=== PATIENT | female | born 1955 | race Caucasian/White ===

== ENCOUNTER → 2018-05-12 11:13 | Outpatient (CLI) | payer OTHER, SELFPAY ==
[2018-05-12 11:55] LABS: INR 1.6 (0.9-1.3); Prothrombin Time 17.3 SECONDS (10.1-12.7)
== END ==
PROVIDERS: Family Provider Family Medicine Geriatric Medicine; PCP Family Medicine Geriatric Medicine; Visit Provider Nurse Practitioner
DX: Z51.81 Encounter for therapeutic drug level monitoring (principal)
CPT/HCPCS: 36415; 85610

== ENCOUNTER 2018-09-05 10:00 | Outpatient (RCR) | payer OTHER, SELFPAY ==
[2018-05-03 11:41] VITALS: BP 146/64; BP 150/64; O2SAT 99; BMI 25.0
--- NOTE | 2018-05-03 14:48 | CR.IEVALNOTE ---
CR Initial Assessment Report DX: NSTEMI Prox LAD, Life Vest, apical LAD 95% vessel disease, Type 2 diabetes, Hypothyroid CR Cardiac Rehab Initial Assessment Start: 05/03/18 11:18 Freq: Status: Active Session 1 Protocol: Document 05/03/18 11:41 EMILY (Rec: 05/03/18 12:05 EMILY [id number]) Cardiac Rehabilitation Exercise Risk Risk High % 25-30% 04/08/18 EF Comment: down from 60% 10/01/14. Tested then for possible TIA. Per pt recall, no angiogram done then. AICD No Pacemaker No Heart Rhythm SR W/HX PROLONGED QT. ON INTAKE QT MEASUREMENT 0.40 ON STRIP PRINTED Comment WEARING LIFE VEST Left Arm Blood Pressure (90/60-120/80 mmHg) 146/64 H Blood Pressure Method Manual Cuff/Auscultation Blood Pressure Position Sitting Right Arm Blood Pressure (90/60-120/80 mmHg) 150/64 H Blood Pressure Method Manual Cuff/Auscultation Blood Pressure Position Sitting Bilateral Resting Heart Rate: 90 Target Heart Rate: 110 Target Heart Rate Comment: NOT CURRENTLY ON BETA DAVE Strength: Normal Pulse Rhythm: Regular Pulse Assessment Method Pulse Ox/Monitor Lung Sounds: CLEAR ON ASCULTATION Pulse Oximetry (91-100 %) 99 Cardiac Rehabilitation Exercise Fall Risk History of Falling (Immediate or No Previous) Secondary Diagnosis (More Than 2 Medical Yes Diagnoses) Ambulatory Aid None/bed rest/nurse assist IV/Heparin Lock No Gait/Transferring Normal/bedrest/immobile Mental Status Oriented to own ability Score Total 15 Risk Level Low Fall Risk Action Implement Triplett Fall Risk Precautions Assistive Devices None Cardiac Rehabilitation Nutrition Evaluation Recent Lipid Blood Test Yes Date Blood Test Drawn 12/13/17 Total Cholesterol 209 Triglycerides 79 HDL 85 LDL 106 Lipid Medications Yes: ATORVASTATIN 40 MG Goal for Lipids AT GOAL Lipids Comment HAS BEEN ON ATORVASTATIN FOR YEARS History of Diabetes Yes Type Type 1 Monitors Blood Glucose Yes: CONTINUOUS BG MONITOR ON ABDOMEN Frequency CONTINUOUS Diabetic Medications TOUYOLY NOVOLOG Diet Controlled No On Insulin Yes Date/Result of HgA1C 04/09/18; 8.0% Goals FBS 80-110 HgA1C <5.6 Comment RECENT STEROID SHOT IN BACK HAS REALLY CAUSED BG CONTROL TO BE OFF. UNDER CARE OF BODY CLEANER WHO IS LOOKING AT HAVING HER TRY AN INSULIN PUMP. Cardiac Rehabilitation Weight Management Plan Height 160.02 cm Weight 63.957 kg Body Mass Index (BMI) 25.0 Girth Measurement (in inches) (cm) 33 Patient Goal(s) Lose 1-2 of Girth Lose 5-10 lbs Body Weight BMI Goal of 19-25 Vitamins & Supplements Yes: ONLY MAGNESIUM Use Occasionally Amount Occasionally Nutrition Evaluation Referral to Diabetes Education No Nurse/Patient Discussion Yes Patient Following Diet Plan Yes Diet Low-Carb Patient's Nutritional Goals WOULD LIKE TO TAKE OFF A BIT OF WEIGHT. IS PLANNING ON STARTING WITH CUTTING ALCOHOL. Education Primary Language QATARI Barrel Bung Remover And Dumper Required No Hearing Ability Normal Visual Impairment No Limitations Visual Difficutly None Education on Intake Chest Pain Short of Breath Headache Lightheaded or Dizzy Musculoskeletal Pain General Malaise Tobacco Use N/A Hx Hypertension No: NEWLY ON LISINOPRIL Goal PER PT, BP NEVER AN ISSUE. ABOVE GOAL DURING INTAKE, BUT STATES BP USUALLY NORMAL Medications LISINOPRIL. TO GET BETA DAVE WHEN QT INTERVAL DECREASES Goal of BP <130/80 Yes HTN Education Discussion REVIEWED BP MONITORING DURING CR Medications Reconciled Yes CR Psychosocial Evaluation Goal REGAIN CONFIDENCE WITH ACTIVITY. FEELS UNCOMFORTABLE GOING TOO FAR AWAY FROM COMMUNICATION (NO CELL SERVICE ) OR BEING FAR FROM A HOSPITAL . FEELS LIKE THE LIFE VEST SINGLES HER OUT Identifies Stressors SUDDEN CAD DX AND LIFE VEST Psych Consult No Discussion with Patient Yes Psychotropic Medications Yes: WELLBUTRIN. NOT NEW, BUT QUESTIONS THE NEED PHQ9 Score 4 HQ Scoring Scale 0-4 = None PHQ >9 No Comment HAS GOAL OF WANTING TO GET OFF MANY MEDS POSSIBLE. Positive Support FAMILY Situation AT HOME WITH Marital Status Employment Status Retired Occupation / Employer Yes: [employer] Ready for Change Number 51 CR Psychosocial Eval Continued Sternotomy Incision N/A Heart Murmur NONE AUSCULTATED Lung Sounds CLEAR ON INTAKE Edema NONE. STATES SOMETIMES A BIT PUFFY IF HOT OUT Stress Management Class Yes Heart Disease & Emotion Film Yes Readiness Cooperative Motivated Patient's Story EXPERIENCED AN ODD FEELING NOT RIGHT WHEN GARDENING. WENT TO SEE HER DOCTOR AND WAS SENT TO [facility] AND STENTED. STILL WITH ONE AREA LEFT WITH NARROWED LUMEN 95. EF 25-30% WITH PROLONGED QT AND ENDED UP WITH LIFE VEST. IN SPITE OF POSSIBLE TIA 4 YEARS AGO, ANY SORT OF CARDIAC DX WAS A COMPLETE SHOCK. Treatment Prescribed for Individual Yes Needs No Treatment Change Yes: Please Continue with Cardiopulmonary Rehabilitation as Ordered Date 05/03/18 Document 05/03/18 14:28 AA (Rec: 05/03/18 14:48 AA [id number]) Cardiac Rehabilitation Exercise Fall Risk Ravi Activity Status Index 8.78 Home Exercise No Symptoms: Back Pain Limited Range of Motion Body Alignment Posture Forward Head Thoracic Kyphosis Orthotic/Prosthetic Devices or Brace: No Exercise Treadmill Results 12 min METS 4.29 Angina with Exercise No Exercise Tolerance Good CR Pre Exercise Evaluation Orientation Self Pulse Check CLINT PRE Scale Exercise Safety Equipment Orientation Warm Up/Cool Down Patient Short-term Goal(s) Return to work at the [employer]. Increase stamina and endurance to be able to walk for 20 mins in CR in 6 weeks. Patient Trim Carpenter Goal(s) Return to group fitness classes, to lose 5-10 lbs, to be able to stand for 6-8 hours and walk around for work by increasing strength and endurance in CR in 12 weeks. Prescribed Exercises Treadmill MET Goal 4.50 Nustep MET Goal 4.50 RPE 11-14 Equipment Goals TM 4.5 NS 4.5 Number/Value 2 LVL 3 Progress to Goal Increase as tolerated Short Term Return to work at the [employer]. Increase stamina and endurance to be able to walk for 20 mins in CR in 6 weeks. Mcfp Return to group fitness classes, to lose 5-10 lbs, to be able to stand for 6-8 hours and walk around for work by increasing strength and endurance in CR in 12 weeks. Current Diagnoses Presence of coronary angioplasty implant and graft (05/03/18)
--- NOTE | 2018-05-04 15:37 | CR.EDUC ---
CR Education Report CR Education Start: 05/04/18 15:34 Freq: Status: Active Protocol: Document 05/04/18 15:34 BELKIS (Rec: 05/04/18 15:37 BELKIS [id number]) CR Education Education MET WITH EDITH WHEELER FOR METS Education QTC 49.55. FIRST DAY IN CR TOLERATED 40 MIN OF EXERCISE WELL. DISCUSSED SOME OF HER FOODS. SUGGESTED NO PACKAGED OATMEAL BAKE STEELS CUT LUCIA IN CROCK POT OVERNIGHT FOR THE WEEK. HAVE WITH NUTS. WILL CONTINUE TO HAVE NUTRION EDUCATION
--- NOTE | 2018-05-09 13:26 | CR.EDUC ---
Current Diagnoses Presence of coronary angioplasty implant and graft (05/09/18) Provider Summary Visit Care Team Role Provider Type J Kym Waters MD Family Provider Physician Primary Care Provider Specialty: Family Practice Address: [address], [place], [address] Email: Lyudmila Jose MD Attending Provider Non-Staff Specialty: Cardiology Address: [address] [place] [address], [phone] Email: CR Education Report CR Education Start: 05/04/18 15:34 Freq: Status: Active Protocol: Document 05/04/18 15:34 JCNarda (Rec: 05/04/18 15:37 JCP [id number]) CR EDUCATION Education MET WITH EDITH WHEELER FOR METS Education QTC 49.55. FIRST DAY IN CR TOLERATED 40 MIN OF EXERCISE WELL. DISCUSSED SOME OF HER FOODS. SUGGESTED NO PACKAGED OATMEAL BAKE STEELS CUT LUCIA IN CROCK POT OVERNIGHT FOR THE WEEK. HAVE WITH NUTS. WILL CONTINUE TO HAVE NUTRION EDUCATION MET WITH CANDE TODAY AND DISCUSSED HER BLOOD SUGAR,INSULIN AND FOODS. SUGGESTED INSTEAD OF A GRANOLA BAR HAVE NUTS. SANCHEZ
--- NOTE | 2018-05-11 14:32 | CR.EDUC ---
Current Diagnoses Presence of coronary angioplasty implant and graft (05/09/18) Provider Summary Visit Care Team Role Provider Type Chela Waters MD Family Provider Physician Primary Care Provider Specialty: Family Practice Address: [address], [place], [address] Email: Lyudmila Jose MD Attending Provider Non-Staff Specialty: Cardiology Address: [address] [place] [address], [phone] Email: CR Education Report CR Education Start: 05/04/18 15:34 Freq: Status: Active Protocol: Document 05/04/18 15:34 JCP (Rec: 05/04/18 15:37 [facility] [id number]) CR EDUCATION Education MET WITH EDITH WHEELER FOR METS Education QTC 49.55. FIRST DAY IN CR TOLERATED 40 MIN OF EXERCISE WELL. DISCUSSED SOME OF HER FOODS. SUGGESTED NO PACKAGED OATMEAL BAKE STEELS CUT LUCIA IN CROCK POT OVERNIGHT FOR THE WEEK. HAVE WITH NUTS. WILL CONTINUE TO HAVE NUTRION EDUCATION Document 05/09/18 13:24 JCP (Rec: 05/09/18 13:27 JC [id number]) CR EDUCATION Education REVIEWED BLOOD SUGAR AND INSULIN AND FOODS TODAY WITH CANDE. SUGGESTED NO GRANOLA BAR AND HAVE NUTS INSTEAD.SANCHEZ 05/09/18 13:26 CR Education Note by Nazanin Gloria Current Diagnoses Presence of coronary angioplasty implant and graft (05/09/18) Provider Summary Visit Care Team Role Provider Type Chela Waters MD Family Provider Physician Primary Care Provider Specialty: Family Practice Address: [address], [place], [address] Email: Lyudmila Jose MD Attending Provider Non-Staff Specialty: Cardiology Address: [address] [place] [address], [phone] Email: CR Education Report CR Education Start: 05/04/18 15:34 Freq: Status: Active Protocol: Document 05/04/18 15:34 BELKIS (Rec: 05/04/18 15:37 [facility] [id number]) CR EDUCATION Education MET WITH EDITH WHEELER FOR METS Education QTC 49.55. FIRST DAY IN CR TOLERATED 40 MIN OF EXERCISE WELL. DISCUSSED SOME OF HER FOODS. SUGGESTED NO PACKAGED OATMEAL BAKE STEELS CUT LUCIA IN CROCK POT OVERNIGHT FOR THE WEEK. HAVE WITH NUTS. WILL CONTINUE TO HAVE NUTRION EDUCATION MET WITH CANDE TODAY AND DISCUSSED HER BLOOD SUGAR,INSULIN AND FOODS. SUGGESTED INSTEAD OF A GRANOLA BAR HAVE NUTS. SANCHEZ Initialized on 05/09/18 13:26 - END OF NOTE Document 05/11/18 14:31 BELKIS (Rec: 05/11/18 14:31 ZEB [id number]) CR EDUCATION Education REVIEWED THE LATEST RESEARCH ON CHOLESTEROL
[2018-05-31 12:16] VITALS: BP 120/64
[2018-06-29 15:15] VITALS: BP 130/72; RESP 12
[2018-09-05 15:51] VITALS: BP 128/72
== END 2018-09-06 10:39 ==
LOC: CAR 10:00
PROVIDERS: Family Provider Family Medicine Geriatric Medicine; PCP Family Medicine Geriatric Medicine; Visit Provider Internal Medicine
DX: Z95.5 Presence of coronary angioplasty implant and graft (principal)
CPT/HCPCS: 93798